=== PATIENT | male | born 1955 | race Caucasian/White ===

== ENCOUNTER 2018-05-21 11:17 | Outpatient (CLI) | payer OTHER, SELFPAY ==
[~2018-05-21 11:17] MED LIST: Sodium Chloride 0.9% 15 ML NEB ONE
--- NOTE | 2018-05-22 08:22 | HP ---
HISTORY OF PRESENT ILLNESS: Mr. Jovany Forbes is a very pleasant 62-year-old gentleman, accompanied by his son, who [facility] of a wound of the right lower leg, which developed after the patient scraped his right lower leg on a gate in July of 2017. The patient states that he has undergone percutaneous revascularization of the right lower extremity on 2 occasions in the past. The patient's medical history is also significant for left enibh-gka-uufs amputation in April of this year. The patient states that he has cleansed his wound with iodine in the past, but more recently has been cleansing the wound with saline and then dressing the wound with Telfa. The patient and his son state that the wound has been treated with various dressings including Medihoney, Silver Gel, calcium alginate, and Neosporin. PAST MEDICAL HISTORY: 1. Congestive heart failure. 2. Hypertension. 3. CVA in 2005. 4. Diabetes mellitus. 5. Chronic kidney disease. 6. DVT in 2014. PAST SURGICAL HISTORY: 1. Left tacpk-olk-bjvz amputation in April of 2018. 2. Pacemaker placement. 3. Coronary artery bypass grafting x3. 4. Percutaneous revascularization of right lower extremity x2. MEDICATIONS: The patient does not have a list of his medications with him today. ALLERGIES: BACTRIM. SOCIAL HISTORY: Significant for tobacco use of up to 1/2 pack of cigarettes per day or 3 cigars per day for 25 years in the past. The patient states that he stopped smoking in 2005. The patient also admits to the moderate consumption of alcohol in the past. He states that he stopped consuming alcohol completely in 2011. FAMILY HISTORY: Significant for both coronary artery disease and diabetes mellitus. PHYSICAL EXAMINATION: VITAL SIGNS: Temperature 98.1, pulse 70, respirations 17, and blood pressure 139/76. Accu-Chek 161. GENERAL: A 62-year-old gentleman, sitting on chair in examination room, in no acute distress. HEENT: Normocephalic, atraumatic. NECK: No nuchal rigidity. CHEST: Clear to auscultation. CARDIOVASCULAR: Regular rate and rhythm. ABDOMEN: Soft. EXTREMITIES: A wound of the right lower leg is present, which measures approximately 2.2 x 1.8 cm. Granulation tissue is visible within the wound margins. No purulent drainage is associated with the wound. No erythema of the skin surrounding the wound is present. No maceration of the skin of the periwound is noted. A dorsalis pedis pulse or posterior tibial pulse is not palpable on the right. Edema of the right foot and lower leg is present on exam today. LABORATORY DATA: Accu-Chek 161. ASSESSMENT AND PLAN: 1. Ulceration of right anterior lower leg as described above. I have explained to the patient and his son that the ulceration is likely due to both venous and arterial insufficiency. Dressing changes of Xeroform gauze will be initiated today. These dressing changes are to be performed on a daily basis after cleansing and irrigation. The patient will be performing his own dressing changes. Telfa will be utilized as a secondary dressing. Coban will be utilized as needed at the time of dressing changes. The patient states that he has a followup appointment with his glue sprayer in the near future. The patient states that he will enquire as to whether another attempt at percutaneous revascularization of the right lower extremity is warranted. I will see Mr. Forbes again after his evaluation by Cardiology. No antibiotics will be prescribed today based upon the appearance of the wound. The patient and his son understand and are in agreement with the preceding treatment plan. 2. Congestive heart failure. 3. Hypertension. 4. Cerebrovascular accident in 2005. 5. Diabetes mellitus. The patient's Accu-Chek in clinic today is 161. The patient has been told that for optimal wound healing his blood glucoses should remain below 150. 6. Chronic kidney disease. 7. Deep venous thrombosis in 2014. The patient states that he is now taking Plavix and aspirin. He was previously taking Xarelto. Job ID: [id number]
== END 2018-05-21 11:18 | disposition home or self-care (01) ==
LOC: WCC 11:17
PROVIDERS: ATTEND Family Medicine
DX: E11.622 Type 2 diabetes mellitus with other skin ulcer (principal); L97.919 Non-pressure chronic ulcer of unspecified part of right lower leg with unspecified severity; E11.22 Type 2 diabetes mellitus with diabetic chronic kidney disease; I13.0 Hypertensive heart and chronic kidney disease with heart failure and stage 1 through stage 4 chronic kidney disease, or unspecified chronic kidney disease; I50.9 Heart failure, unspecified; N18.9 Chronic kidney disease, unspecified; Z86.73 Personal history of transient ischemic attack (TIA), and cerebral infarction without residual deficits; Z86.718 Personal history of other venous thrombosis and embolism
CPT/HCPCS: 36416

== ENCOUNTER 2018-05-28 09:57 | Outpatient (CLI) | payer OTHER | END 2018-05-28 09:58 | disposition home or self-care (01) | LOC: MWLC DTY 09:57 | PROVIDERS: ATTEND Internal Medicine Geriatric Medicine | DX: E11.51 Type 2 diabetes mellitus with diabetic peripheral angiopathy without gangrene (principal) | CPT/HCPCS: 97802 ==

== ENCOUNTER 2023-04-04 11:00 | Inpatient (IN) | payer MEDICARE ==
[2023-04-04] MEDS ORDERED: Ondansetron ODT 4 MG TAB PO PRN (19:57)
[2023-04-04] MEDS ORDERED: Calcium Carbonate 500 MG ChewTAB PO PRN (19:57)
[2023-04-04 20:34] LABS: #Basophils 0.1 thou/uL (0.0-0.2); #Eosinphils 0.2 thou/uL (0.0-0.7); #Neutrophils 12.1 thou/uL (1.40-6.50); %Basophils 0.5 % (0.0-1.0); %Eosinophils 1.3 % (0.0-10.0); %Monocytes 12.3 % (0.0-10.0); %Neutrophils 75.1 % (42.0-75.0); Hematocrit 47.5 % (42.0-52.0); Hemoglobin 14.3 g/dL (14.0-18.0); Mean Corpuscular HGB CONC 30.1 g/dL (32.0-36.0); Mean Corpuscular Hemoglobin 28.9 pg (27.0-31.0); Mean Corpuscular Volume 96.2 fl (78.0-98.0); Mean Platelet Volume 11.1 fL (7.4-10.4); Platelet Count 214 10x3/uL (130-400); RBC Distribution Width 15.3 % (11.5-14.5); Red Blood Cell (RBC) Count 4.94 mill/uL (4.70-6.10); White Blood Cell (WBC) Count 16.2 10x3/uL (4.8-10.8)
[2023-04-04 20:59] LABS: Anion Gap 18 mmol/L (10-20); BUN (Urea Nitrogen) 46 mg/dL (8.4-25.7); Calc. Creatinine Clearance 0 mL/min (70-130); Calcium 8.8 mg/dL (7.8-10.44); Carbon Dioxide 14 mmol/L (23-31); Chloride 104 mmol/L (98-107); Estimated GFR 15; Glucose 128 mg/dL (80-115); Magnesium 2.6 mg/dL (1.6-2.6); Potassium 4.6 mmol/L (3.5-5.1); Sodium 131 mmol/L (136-145)
[2023-04-04 21:02] LABS: Troponin I 0.164 ng/mL (< 0.028)
[2023-04-04] MEDS ORDERED: Sodium Bicarbonate 150 MEQ in Dextrose 5% in Water 1,000 ML IV SCH (22:15)
[2023-04-04] MEDS: Sodium Bicarbonate 150 MEQ in Dextrose 5% in Water 1,000 ML IV SCH (22:45)
[2023-04-04] MEDS: Famotidine 20 MG TAB PO SCH (22:48)
[2023-04-04] MEDS: Ipratropium/Albuterol 3 ML NEB NEB SCH (23:05)
[2023-04-04] MEDS ORDERED: [UNRECOGNIZED DRUG - REMARK] IVPB PRN (23:11)
[2023-04-05] MEDS: Furosemide 20 MG (2 mL) VIAL SLOW IVP SCH (00:18)
[2023-04-05] MEDS: Albumin 25% 25 GM (100 mL) BOT IVPB SCH (00:19)
[2023-04-05 00:22] LABS: Hemoglobin A1c 10.1 % (4.0-6.0)
[2023-04-05 00:25] LABS: Vancomycin, Random 18.1 ug/mL (See Comment)
[2023-04-05 00:38] LABS: Troponin I 0.258 ng/mL (< 0.028)
[2023-04-05] MEDS ORDERED: Glucagon 1 MG/ML KIT IM PRN (00:42)
[2023-04-05] MEDS ORDERED: Dextrose 50% Abboject 50 ML SYRINGE SLOW IVP PRN (00:42)
[2023-04-05] MEDS ORDERED: Dextrose 5% in Water 1,000 ML IV PRN (00:42)
[2023-04-05] MEDS ORDERED: Vancomycin Dose by Levels Sliding Scale (Wt > 99) FS SCH (00:45)
[2023-04-05] MEDS: Vancomycin HCl 750 MG in Sodium Chloride 0.9% 250 ML 250 ML IVPB SCH (01:36)
[2023-04-05 04:37] LABS: ALT (SGPT) 12 U/L (8-55); AST (SGOT) 16 U/L (5-34); Albumin 3.9 g/dL (3.4-4.8); Alkaline Phosphatase 144 U/L (40-110); Anion Gap 21 mmol/L (10-20); BUN (Urea Nitrogen) 50 mg/dL (8.4-25.7); Bilirubin, Total 1.4 mg/dL (0.2-1.2); Calc. Creatinine Clearance 30 mL/min (70-130); Calcium 8.9 mg/dL (7.8-10.44); Carbon Dioxide 13 mmol/L (23-31); Cardiac Risk 2.5 (Less than 4.5); Chloride 102 mmol/L (98-107); Cholesterol 106 mg/dl (< 200 Desired); Estimated GFR 14; Globulin 3.8 g/dL (2.4-3.5); Glucose 158 mg/dL (80-115); HDL Cholesterol 42 mg/dL (>60 Neg Risk); LDL Cholesterol, Calculated 42 mg/dL; Potassium 4.6 mmol/L (3.5-5.1); Protein, Total 7.7 g/dL (5.8-8.1); Sodium 131 mmol/L (136-145); Triglycerides 111 mg/dL (Less than 150)
[2023-04-05 04:45] LABS: Troponin I 0.419 ng/mL (< 0.028)
[2023-04-05] MEDS: Furosemide 40 MG (4 mL) VIAL SLOW IVP SCH (05:58)
[2023-04-05 07:27] LABS: Critical Call Chem Troponin I NUR.BC6 AT 0727; Troponin I 0.481 ng/mL (< 0.028)
[2023-04-05] MEDS ORDERED: Enoxaparin 30 MG (0.3 mL) SYRINGE SC SCH (09:00)
[2023-04-05] MEDS: Aspirin Chewable 81 MG TAB PO SCH (09:17)
[2023-04-05] MEDS: cefTRIAXone\\ROCEPHIN 2 GM in Sodium Chloride 0.9% 100 ML IVPB SCH (09:17)
[2023-04-05] MEDS ORDERED: Furosemide 40 MG (4 mL) VIAL SLOW IVP SCH (12:04)
[2023-04-05] MEDS: Furosemide 100 MG (10 mL) VIAL FS SCH (13:07)
[2023-04-05] MEDS: Carvedilol 6.25 MG TAB PO SCH (18:27)
[2023-04-05] MEDS: Atorvastatin Calcium 40 MG TAB PO SCH (22:01)
[2023-04-06 04:53] LABS: #Basophils 0.1 thou/uL (0.0-0.2); #Eosinphils 0.3 thou/uL (0.0-0.7); #Monocytes 1.8 thou/uL (0.11-0.59); %Basophils 0.4 % (0.0-1.0); %Eosinophils 1.9 % (0.0-10.0); %Lymphocytes 7.3 % (21.0-51.0); %Monocytes 12.4 % (0.0-10.0); %Neutrophils 77.1 % (42.0-75.0); Hematocrit 44.2 % (42.0-52.0); Hemoglobin 13.8 g/dL (14.0-18.0); Mean Corpuscular HGB CONC 31.2 g/dL (32.0-36.0); Mean Corpuscular Hemoglobin 29.1 pg (27.0-31.0); Mean Corpuscular Volume 93.2 fl (78.0-98.0); Mean Platelet Volume 10.9 fL (7.4-10.4); Platelet Count 185 10x3/uL (130-400); RBC Distribution Width 15.1 % (11.5-14.5); Red Blood Cell (RBC) Count 4.74 mill/uL (4.70-6.10); White Blood Cell (WBC) Count 14.3 10x3/uL (4.8-10.8)
[2023-04-06 05:22] LABS: Anion Gap 17 mmol/L (10-20); BUN (Urea Nitrogen) 58 mg/dL (8.4-25.7); Calc. Creatinine Clearance 28 mL/min (70-130); Calcium 8.7 mg/dL (7.8-10.44); Carbon Dioxide 15 mmol/L (23-31); Chloride 103 mmol/L (98-107); Estimated GFR 12; Glucose 163 mg/dL (80-115); Potassium 4.4 mmol/L (3.5-5.1); Sodium 131 mmol/L (136-145)
[2023-04-06] MEDS: Furosemide 100 MG (10 mL) VIAL SLOW IVP SCH (05:48)
[2023-04-06] MEDS: HumaLOG 300 UNITS/3 ML VIAL SC PRN (06:10)
[2023-04-06] MEDS: Acetaminophen 325 MG TAB PO PRN (08:17)
[2023-04-06] MEDS ORDERED: Empagliflozin 25 MG TAB PO SCH (09:00)
[2023-04-06] MEDS ORDERED: Nystatin Powder 15 GM BOT TOP SCH (09:15)
[2023-04-06] MEDS: Clopidogrel Bisulfate 75 MG TAB PO SCH (09:16)
[2023-04-06] MEDS: Amlodipine 5 MG TAB PO SCH (09:16)
[2023-04-06] MEDS: hydrALAZINE 25 MG TAB PO SCH (09:17)
[2023-04-06] MEDS: Heparin 5,000 UNITS/ML VIAL SC SCH (09:17)
[2023-04-06] MEDS: Atorvastatin Calcium 40 MG TAB PO SCH (10:39)
[2023-04-06] MEDS: Nystatin Powder 15 GM BOT TOP SCH ×2 (10:45→21:45)
[2023-04-06] MEDS: Carvedilol 6.25 MG TAB PO SCH ×2 (10:45→17:09)
[2023-04-06 12:42] LABS: Actual Bicarbonate (HCO3a) 17.4 mEq/L (22-28); Base Excess (BEa) -11.1 mEq/L (-2.0 to +3.0); CO2 Tension 48.8 mmHg (35.0-45.0); Calcium, Ionized (arterial) 1.17 mmol/L (1.12-1.30); Hematocrit-ABG 41 % (42.0-52.0); Potassium - ABG Lab 4.11 mmol/L (3.70-5.30)
[2023-04-06 12:46] LABS: O2 Tension (PaO2), arterial 44.5 mmHg (> 80.0); pH, Arterial 7.169 (7.35-7.45)
[2023-04-06 12:47] LABS: Puncture Site RRA
[2023-04-06] MEDS: hydrALAZINE 20 MG/ML VIAL SLOW IVP SCH (19:47)
[2023-04-06] MEDS: Nitroglycerin 2% Ointment 1 INCH/1 GM Packet TOP SCH (21:28)
[2023-04-06] MEDS: hydrALAZINE 20 MG/ML VIAL ONE (21:31)
[2023-04-06] MEDS: Famotidine 20 MG TAB PO SCH (21:43)
[2023-04-07 04:17] LABS: #Basophils 0.1 thou/uL (0.0-0.2); #Eosinphils 0.3 thou/uL (0.0-0.7); #Monocytes 1.9 thou/uL (0.11-0.59); #Neutrophils 8.7 thou/uL (1.40-6.50); %Basophils 0.5 % (0.0-1.0); %Eosinophils 2.7 % (0.0-10.0); %Lymphocytes 7.7 % (21.0-51.0); %Monocytes 15.9 % (0.0-10.0); %Neutrophils 72.9 % (42.0-75.0); Hematocrit 41.4 % (42.0-52.0); Hemoglobin 13.5 g/dL (14.0-18.0); Mean Corpuscular HGB CONC 32.6 g/dL (32.0-36.0); Mean Corpuscular Hemoglobin 29.1 pg (27.0-31.0); Mean Platelet Volume 10.7 fL (7.4-10.4); Platelet Count 155 10x3/uL (130-400); RBC Distribution Width 14.8 % (11.5-14.5); Red Blood Cell (RBC) Count 4.64 mill/uL (4.70-6.10)
[2023-04-07 04:24] LABS: Mean Corpuscular Volume 89.2 fl (78.0-98.0)
[2023-04-07 04:46] LABS: Anion Gap 20 mmol/L (10-20); BUN (Urea Nitrogen) 58 mg/dL (8.4-25.7); Calc. Creatinine Clearance 34 mL/min (70-130); Calcium 8.6 mg/dL (7.8-10.44); Carbon Dioxide 15 mmol/L (23-31); Chloride 104 mmol/L (98-107); Estimated GFR 15; Glucose 144 mg/dL (80-115); Sodium 135 mmol/L (136-145)
[2023-04-07] MEDS: traMADol HCl 50 MG TAB PO PRN (22:51)
[2023-04-07] MEDS: Gabapentin 400 MG CAP PO SCH (23:31)
[2023-04-08] MEDS: Loratadine 10 MG TAB PO SCH (03:07)
[2023-04-08 03:57] LABS: Actual Bicarbonate (HCO3v) 20.3 mEq/L (22-28); Base Excess -4.7 mEq/L (-2.0 to +3.0); Calcium, Ionized (venous) 1.16 mmol/L (1.16-1.32); Chloride (VBG) 104 mmol/L (98-106); Hematocrit-VBG 39 % (42.0-52.0); Hemoglobin (Hb) 13.2 g/dL (12.6-17.4); Potassium (VBG) 3.35 mmol/L (3.70-5.30); Sodium 136 mmol/L (133-146); pH (venous) 7.353 (7.32-7.43)
[2023-04-08 04:31] LABS: #Basophils 0.1 thou/uL (0.0-0.2); #Eosinphils 0.3 thou/uL (0.0-0.7); #Monocytes 1.9 thou/uL (0.11-0.59); #Neutrophils 6.2 thou/uL (1.40-6.50); %Basophils 0.5 % (0.0-1.0); %Eosinophils 3.1 % (0.0-10.0); %Lymphocytes 13.8 % (21.0-51.0); %Monocytes 19.2 % (0.0-10.0); %Neutrophils 63.1 % (42.0-75.0); Hematocrit 36.8 % (42.0-52.0); Hemoglobin 12.1 g/dL (14.0-18.0); Mean Corpuscular HGB CONC 32.9 g/dL (32.0-36.0); Mean Corpuscular Hemoglobin 29.2 pg (27.0-31.0); Mean Corpuscular Volume 88.7 fl (78.0-98.0); Mean Platelet Volume 11.1 fL (7.4-10.4); Platelet Count 163 10x3/uL (130-400); RBC Distribution Width 14.6 % (11.5-14.5); Red Blood Cell (RBC) Count 4.15 mill/uL (4.70-6.10); White Blood Cell (WBC) Count 9.8 10x3/uL (4.8-10.8)
[2023-04-08 04:55] LABS: Anion Gap 13 mmol/L (10-20); BUN (Urea Nitrogen) 54 mg/dL (8.4-25.7); Calc. Creatinine Clearance 47 mL/min (70-130); Calcium 8.8 mg/dL (7.8-10.44); Carbon Dioxide 22 mmol/L (23-31); Chloride 105 mmol/L (98-107); Estimated GFR 24; Glucose 160 mg/dL (80-115); Potassium 3.3 mmol/L (3.5-5.1); Sodium 137 mmol/L (136-145)
[2023-04-08 07:01] LABS: Magnesium 2.2 mg/dL (1.6-2.6)
[2023-04-08] MEDS: Potassium Chloride 20 MEQ TAB PO SCH (08:57)
[2023-04-08] MEDS: Gabapentin 400 MG CAP PO SCH (08:58)
[2023-04-08] MEDS: Acetaminophen 500 MG TAB PO SCH (11:39)
[2023-04-08] MEDS: HumaLOG 300 UNITS/3 ML VIAL SC PRN (22:20)
[2023-04-09 06:09] LABS: Hematocrit 37.8 % (42.0-52.0); Hemoglobin 12.3 g/dL (14.0-18.0); Manual Diff?? YES; Mean Corpuscular HGB CONC 32.5 g/dL (32.0-36.0); Mean Corpuscular Hemoglobin 28.9 pg (27.0-31.0); Mean Corpuscular Volume 88.7 fl (78.0-98.0); Mean Platelet Volume 10.6 fL (7.4-10.4); Platelet Count 149 10x3/uL (130-400); RBC Distribution Width 14.6 % (11.5-14.5); Red Blood Cell (RBC) Count 4.26 mill/uL (4.70-6.10); White Blood Cell (WBC) Count 7.9 10x3/uL (4.8-10.8)
[2023-04-09 06:14] LABS: Delete Auto Diff?? YES
[2023-04-09 06:31] LABS: Anion Gap 12 mmol/L (10-20); BUN (Urea Nitrogen) 44 mg/dL (8.4-25.7); Calc. Creatinine Clearance 63 mL/min (70-130); Carbon Dioxide 25 mmol/L (23-31); Chloride 104 mmol/L (98-107); Estimated GFR 35; Glucose 156 mg/dL (80-115); Potassium 3.3 mmol/L (3.5-5.1); Sodium 138 mmol/L (136-145)
[2023-04-09 06:53] LABS: Anisocytosis SLIGHT = 6-15 cells HPF (0-5); CellaVision Operator ID lab.sh2; Eosinophils 4 % (0-10); Large Platelets 8.7 % (0-5); Lymphocytes 19 % (21-51); Monocytes 17 % (0-10); Neutrophil 58 % (42-75); Ovalocytes SLIGHT = 2-5 cells HPF (0-1); Platelet Adequacy Comment Platelets Normal; Polychromasia SLIGHT = 2-3 cells HPF (0-2); Smudge Cells 17.4 %; Total Cell Count 115; Vacuoles SLIGHT
[2023-04-09] MEDS: Famotidine 20 MG TAB PO SCH (21:18)
[2023-04-09] MEDS: Morphine 2 MG/ML VIAL SLOW IVP PRN (23:04)
[2023-04-10 11:26] LABS: Hematocrit 37.5 % (42.0-52.0); Manual Diff?? YES; Mean Corpuscular Hemoglobin 28.7 pg (27.0-31.0); Mean Corpuscular Volume 89.7 fl (78.0-98.0); Mean Platelet Volume 11.1 fL (7.4-10.4); Platelet Count 135 10x3/uL (130-400); RBC Distribution Width 14.6 % (11.5-14.5); Red Blood Cell (RBC) Count 4.18 mill/uL (4.70-6.10); White Blood Cell (WBC) Count 8.1 10x3/uL (4.8-10.8)
[2023-04-10 11:30] LABS: Delete Auto Diff?? YES
[2023-04-10 11:40] LABS: Anion Gap 12 mmol/L (10-20); BUN (Urea Nitrogen) 34 mg/dL (8.4-25.7); Calc. Creatinine Clearance 88 mL/min (70-130); Calcium 8.9 mg/dL (7.8-10.44); Carbon Dioxide 28 mmol/L (23-31); Chloride 102 mmol/L (98-107); Estimated GFR 56; Glucose 200 mg/dL (80-115); Potassium 3.1 mmol/L (3.5-5.1); Sodium 139 mmol/L (136-145)
[2023-04-10 11:43] LABS: ALT (SGPT) 15 U/L (8-55); AST (SGOT) 21 U/L (5-34); Albumin 3.1 g/dL (3.4-4.8); Alkaline Phosphatase 179 U/L (40-110); Anion Gap 12 mmol/L (10-20); BUN (Urea Nitrogen) 33 mg/dL (8.4-25.7); Bilirubin, Total 0.6 mg/dL (0.2-1.2); Calc. Creatinine Clearance 89 mL/min (70-130); Calcium 8.9 mg/dL (7.8-10.44); Carbon Dioxide 28 mmol/L (23-31); Chloride 102 mmol/L (98-107); Estimated GFR 57; Globulin 3.3 g/dL (2.4-3.5); Glucose 200 mg/dL (80-115); Potassium 3.1 mmol/L (3.5-5.1); Protein, Total 6.4 g/dL (5.8-8.1); Sodium 139 mmol/L (136-145)
[2023-04-10 11:56] LABS: Band 3 % (5-11); CellaVision Operator ID LAB.KW3; Eosinophils 1 % (0-10); Lymphocytes 10 % (21-51); Monocytes 12 % (0-10); Neutrophil 73 % (42-75); Platelet Adequacy Comment Platelets Normal; RBC Morphology Within Normal Limits; Total Cell Count 101
[2023-04-10] MEDS: Amlodipine 5 MG TAB PO SCH (13:42)
[2023-04-10 15:18] LABS: Magnesium 1.6 mg/dL (1.6-2.6)
[2023-04-10] MEDS: Famotidine 20 MG TAB PO SCH (21:02)
[2023-04-11 08:03] LABS: Hematocrit 40.1 % (42.0-52.0); Hemoglobin 12.7 g/dL (14.0-18.0); Manual Diff?? YES; Mean Corpuscular HGB CONC 31.7 g/dL (32.0-36.0); Mean Corpuscular Hemoglobin 28.5 pg (27.0-31.0); Mean Corpuscular Volume 89.9 fl (78.0-98.0); Platelet Count 147 10x3/uL (130-400); RBC Distribution Width 14.5 % (11.5-14.5); Red Blood Cell (RBC) Count 4.46 mill/uL (4.70-6.10); White Blood Cell (WBC) Count 8.2 10x3/uL (4.8-10.8)
[2023-04-11 08:06] LABS: Delete Auto Diff?? YES
[2023-04-11 08:26] LABS: Anion Gap 15 mmol/L (10-20); BUN (Urea Nitrogen) 31 mg/dL (8.4-25.7); Calc. Creatinine Clearance 84 mL/min (70-130); Calcium 9.2 mg/dL (7.8-10.44); Carbon Dioxide 27 mmol/L (23-31); Chloride 100 mmol/L (98-107); Estimated GFR 52; Glucose 180 mg/dL (80-115); Potassium 3.1 mmol/L (3.5-5.1); Sodium 139 mmol/L (136-145)
[2023-04-11 08:41] LABS: Anisocytosis SLIGHT = 6-15 cells HPF (0-5); Band 6 % (5-11); CellaVision Operator ID LAB.KW3; Eosinophils 2 % (0-10); Large Platelets 14.1 % (0-5); Lymphocytes 12 % (21-51); Monocytes 21 % (0-10); Neutrophil 54 % (42-75); Platelet Adequacy Comment Platelets Normal; Polychromasia SLIGHT = 2-3 cells HPF (0-2); Reactive Lymphocytes 3 % (0-10); Total Cell Count 99
[2023-04-11] MEDS ORDERED: Amlodipine 10 MG TAB PO SCH (09:00)
[2023-04-11] MEDS: Carvedilol 6.25 MG TAB PO SCH (10:29)
[2023-04-11] MEDS ORDERED: Electrolyte Replacement Protocol 1 EACH FS SCH (13:30)
[2023-04-11] MEDS: Potassium Chloride 20 MEQ TAB PO SCH (15:57)
[2023-04-11] MEDS: Furosemide 80 MG TAB PO SCH (16:00)
[2023-04-11] MEDS: Magnesium 2 GM/50 ML(in water) 2 GM in Premix 1 BAG IVPB SCH (16:01)
[2023-04-11] MEDS: Loratadine 10 MG TAB PO SCH (22:37)
[2023-04-11] MEDS: Cetirizine HCl 5 MG/5 ML UDCUP PO SCH (23:46)
[2023-04-12 06:33] LABS: Hematocrit 36.3 % (42.0-52.0); Hemoglobin 11.5 g/dL (14.0-18.0); Manual Diff?? YES; Mean Corpuscular HGB CONC 31.7 g/dL (32.0-36.0); Mean Corpuscular Hemoglobin 28.7 pg (27.0-31.0); Mean Corpuscular Volume 90.5 fl (78.0-98.0); Mean Platelet Volume 11.2 fL (7.4-10.4); Platelet Count 139 10x3/uL (130-400); RBC Distribution Width 14.5 % (11.5-14.5); Red Blood Cell (RBC) Count 4.01 mill/uL (4.70-6.10)
[2023-04-12 06:40] LABS: Delete Auto Diff?? YES
[2023-04-12 06:55] LABS: Anion Gap 13 mmol/L (10-20); BUN (Urea Nitrogen) 34 mg/dL (8.4-25.7); Calc. Creatinine Clearance 79 mL/min (70-130); Calcium 8.7 mg/dL (7.8-10.44); Carbon Dioxide 30 mmol/L (23-31); Chloride 97 mmol/L (98-107); Estimated GFR 49; Glucose 249 mg/dL (80-115); Potassium 3.1 mmol/L (3.5-5.1); Sodium 137 mmol/L (136-145)
[2023-04-12 07:17] LABS: Anisocytosis SLIGHT = 6-15 cells HPF (0-5); Band 6 % (5-11); CellaVision Operator ID LAB.KW3; Eosinophils 2 % (0-10); Hypochromia SLIGHT = 6-15 cells HPF (0-5); Large Platelets 10.8 % (0-5); Lymphocytes 12 % (21-51); Monocytes 15 % (0-10); Neutrophil 66 % (42-75); Nucleated RBC (Manual Ct) 1 % (0); Platelet Adequacy Comment Platelets Normal; Polychromasia SLIGHT = 2-3 cells HPF (0-2); Total Cell Count 102
[2023-04-12] MEDS ORDERED: Cetirizine HCl 5 MG/5 ML UDCUP PO SCH (09:00)
[2023-04-12] MEDS: Potassium Chloride 20 MEQ TAB PO SCH (10:20)
[2023-04-12] MEDS: hydrALAZINE 25 MG TAB PO SCH (10:21)
[2023-04-12] MEDS: Isosorbide Dinitrate 20 MG TAB PO SCH (10:23)
[2023-04-12] MEDS: Furosemide 40 MG TAB PO SCH (15:54)
[2023-04-12] MEDS: Carvedilol 25 MG TAB PO SCH (15:55)
[2023-04-12] MEDS: Heparin 5,000 UNITS/ML VIAL SC SCH (20:20)
[2023-04-12] MEDS: Loratadine 10 MG TAB PO SCH (20:20)
[2023-04-13 05:35] LABS: #Basophils 0.1 thou/uL (0.0-0.2); #Eosinphils 0.3 thou/uL (0.0-0.7); #Monocytes 1.7 thou/uL (0.11-0.59); #Neutrophils 5.5 thou/uL (1.40-6.50); %Basophils 0.5 % (0.0-1.0); %Eosinophils 3.3 % (0.0-10.0); %Lymphocytes 17.8 % (21.0-51.0); %Monocytes 18.1 % (0.0-10.0); %Neutrophils 59.9 % (42.0-75.0); Hematocrit 33.9 % (42.0-52.0); Hemoglobin 10.7 g/dL (14.0-18.0); Mean Corpuscular HGB CONC 31.6 g/dL (32.0-36.0); Mean Corpuscular Hemoglobin 28.4 pg (27.0-31.0); Mean Corpuscular Volume 89.9 fl (78.0-98.0); Mean Platelet Volume 11.6 fL (7.4-10.4); Platelet Count 152 10x3/uL (130-400); RBC Distribution Width 14.5 % (11.5-14.5); Red Blood Cell (RBC) Count 3.77 mill/uL (4.70-6.10); White Blood Cell (WBC) Count 9.3 10x3/uL (4.8-10.8)
[2023-04-13 05:56] LABS: Anion Gap 12 mmol/L (10-20); BUN (Urea Nitrogen) 29 mg/dL (8.4-25.7); Calc. Creatinine Clearance 91 mL/min (70-130); Calcium 8.6 mg/dL (7.8-10.44); Carbon Dioxide 33 mmol/L (23-31); Chloride 97 mmol/L (98-107); Estimated GFR 57; Glucose 224 mg/dL (80-115); Potassium 3.2 mmol/L (3.5-5.1); Sodium 139 mmol/L (136-145)
[2023-04-13] MEDS: Potassium Chloride 20 MEQ TAB PO SCH (10:18)
[2023-04-14 06:56] LABS: Anion Gap 14 mmol/L (10-20); BUN (Urea Nitrogen) 25 mg/dL (8.4-25.7); Calc. Creatinine Clearance 102 mL/min (70-130); Calcium 8.8 mg/dL (7.8-10.44); Carbon Dioxide 28 mmol/L (23-31); Chloride 98 mmol/L (98-107); Estimated GFR 67; Glucose 221 mg/dL (80-115); Potassium 3.7 mmol/L (3.5-5.1); Sodium 136 mmol/L (136-145)
[2023-04-14 07:48] LABS: #Basophils 0.1 thou/uL (0.0-0.2); #Eosinphils 0.2 thou/uL (0.0-0.7); #Monocytes 1.4 thou/uL (0.11-0.59); #Neutrophils 4.7 thou/uL (1.40-6.50); %Basophils 0.6 % (0.0-1.0); %Eosinophils 2.7 % (0.0-10.0); %Lymphocytes 21.4 % (21.0-51.0); %Monocytes 17.1 % (0.0-10.0); %Neutrophils 57.8 % (42.0-75.0); Hematocrit 33.7 % (42.0-52.0); Hemoglobin 10.6 g/dL (14.0-18.0); Mean Corpuscular HGB CONC 31.5 g/dL (32.0-36.0); Mean Corpuscular Hemoglobin 28.8 pg (27.0-31.0); Mean Corpuscular Volume 91.6 fl (78.0-98.0); Mean Platelet Volume 11.8 fL (7.4-10.4); Platelet Count 158 10x3/uL (130-400); RBC Distribution Width 14.5 % (11.5-14.5); Red Blood Cell (RBC) Count 3.68 mill/uL (4.70-6.10); White Blood Cell (WBC) Count 8.2 10x3/uL (4.8-10.8)
[2023-04-14] MEDS ORDERED: Guaifenesin DM 100-10/5 ML UDCUP PO PRN (12:24)
[2023-04-14] MEDS ORDERED: Mag-Al 1200 mg/1200 mg/30 ML UDCUP PO PRN (12:24)
[2023-04-15 05:12] LABS: #Eosinphils 0.3 thou/uL (0.0-0.7); #Monocytes 1.3 thou/uL (0.11-0.59); #Neutrophils 4.4 thou/uL (1.40-6.50); %Basophils 0.5 % (0.0-1.0); %Eosinophils 3.7 % (0.0-10.0); %Lymphocytes 23.8 % (21.0-51.0); %Monocytes 16.3 % (0.0-10.0); %Neutrophils 55.2 % (42.0-75.0); Hemoglobin 10.9 g/dL (14.0-18.0); Mean Corpuscular HGB CONC 31.1 g/dL (32.0-36.0); Mean Corpuscular Volume 93.1 fl (78.0-98.0); Mean Platelet Volume 11.7 fL (7.4-10.4); Platelet Count 178 10x3/uL (130-400); RBC Distribution Width 14.5 % (11.5-14.5); Red Blood Cell (RBC) Count 3.76 mill/uL (4.70-6.10); White Blood Cell (WBC) Count 7.9 10x3/uL (4.8-10.8)
[2023-04-15 05:30] LABS: Anion Gap 14 mmol/L (10-20); BUN (Urea Nitrogen) 24 mg/dL (8.4-25.7); Calc. Creatinine Clearance 89 mL/min (70-130); Calcium 9.1 mg/dL (7.8-10.44); Carbon Dioxide 29 mmol/L (23-31); Chloride 97 mmol/L (98-107); Estimated GFR 57; Glucose 263 mg/dL (80-115); Potassium 3.5 mmol/L (3.5-5.1); Sodium 136 mmol/L (136-145)
[2023-04-15] MEDS: hydrALAZINE 25 MG TAB PO SCH (08:58)
[2023-04-15] MEDS: Potassium Chloride 20 MEQ TAB PO SCH (08:58)
[2023-04-15] MEDS: Artificial Tear Sol 15 ML BOT EA EYE PRN (22:55)
[2023-04-16] MEDS: hydrALAZINE 25 MG TAB PO SCH (09:30)
[2023-04-17 06:56] LABS: Anion Gap 10 mmol/L (10-20); BUN (Urea Nitrogen) 23 mg/dL (8.4-25.7); Calc. Creatinine Clearance 88 mL/min (70-130); Calcium 9.1 mg/dL (7.8-10.44); Carbon Dioxide 32 mmol/L (23-31); Chloride 97 mmol/L (98-107); Estimated GFR 56; Glucose 297 mg/dL (80-115); Potassium 3.4 mmol/L (3.5-5.1); Sodium 136 mmol/L (136-145)
[2023-04-17] MEDS: Carvedilol 6.25 MG TAB PO SCH (09:52)
[2023-04-17] MEDS: Potassium Chloride 20 MEQ TAB PO SCH (09:52)
[2023-04-17 14:13] VITALS: BMI 36.8
[2023-04-17 15:43] VITALS: TEMP 97.6
[2023-04-17] MEDS: Carvedilol 25 MG TAB PO SCH (16:17)
[2023-04-17 16:18] VITALS: BP 165/73
== END 2023-04-17 17:50 | DRG 280 ==
LOC: 2NO 19:15 → IMCU/EMU 04-06 14:22
PROVIDERS: ADMIT Internal Medicine; ATTEND Hospitalist
PROC: 30233J1 Transfusion of Nonautologous Serum Albumin into Peripheral Vein, Percutaneous Approach (ICD-10-PCS; 2023-04-05)
PROC: 4A033R1 Measurement of Arterial Saturation, Peripheral, Percutaneous Approach (ICD-10-PCS; principal; 2023-04-06)
PROC: 5A09357 Assistance with Respiratory Ventilation, Less than 24 Consecutive Hours, Continuous Positive Airway Pressure (ICD-10-PCS; 2023-04-06)
DX: I50.23 Acute on chronic systolic (congestive) heart failure (principal); I21.A1 Myocardial infarction type 2; G93.41 Metabolic encephalopathy; J96.01 Acute respiratory failure with hypoxia; J96.02 Acute respiratory failure with hypercapnia; E87.4 Mixed disorder of acid-base balance; N17.9 Acute kidney failure, unspecified; T87.43 Infection of amputation stump, right lower extremity; T87.44 Infection of amputation stump, left lower extremity; M86.9 Osteomyelitis, unspecified; Z88.2 Allergy status to sulfonamides; Z88.1 Allergy status to other antibiotic agents; Z79.899 Other long term (current) drug therapy; Z79.82 Long term (current) use of aspirin; E78.00 Pure hypercholesterolemia, unspecified; L30.4 Erythema intertrigo; N18.9 Chronic kidney disease, unspecified; E66.01 Morbid (severe) obesity due to excess calories; Z68.36 Body mass index [BMI] 36.0-36.9, adult; Z79.4 Long term (current) use of insulin; E87.6 Hypokalemia; Z79.01 Long term (current) use of anticoagulants; I25.5 Ischemic cardiomyopathy; E11.69 Type 2 diabetes mellitus with other specified complication; E11.22 Type 2 diabetes mellitus with diabetic chronic kidney disease
CPT/HCPCS: 36415; 36416; 36600; 71045; 76770; 80048; 80053; 80061; 80202; 82040; 82274; 82805; 83036; 83735; 83880; 84484; 85025; 87040; 93005; 93010; 93306; 94640; 94660; 94760; 97139; J0360; J0696; J1644; J1815; J1940; J2272; J3370; J3475; J3490; J7050; J7070; J7620; P9047

== ENCOUNTER 2023-07-19 03:36 | Inpatient (IN) | payer MEDICARE, OTHER ==
[2023-07-19] MEDS ORDERED: Ondansetron PF 4 MG/2 ML Vial IVP PRN (03:53)
[2023-07-19] MEDS ORDERED: Ondansetron ODT 4 MG TAB PO PRN (03:53)
[2023-07-19 04:22] VITALS: BMI 44.9
[2023-07-19] MEDS ORDERED: Dextrose 5% in Water 1,000 ML IV PRN (04:49)
[2023-07-19] MEDS ORDERED: Dextrose 50% Abboject 50 ML SYRINGE SLOW IVP PRN (04:49)
[2023-07-19] MEDS ORDERED: Glucagon 1 MG/ML KIT IM PRN (04:49)
[2023-07-19 05:09] LABS: #Basophils 0.04 10x3/uL (0.0-0.2); %Basophils 0.6 % (0.0-1.0); %Eosinophils 2.2 % (0.0-10.0); %Lymphocytes 20.5 % (21.0-51.0); %Monocytes 15.5 % (0.0-10.0); %Neutrophils 61.1 % (42.0-75.0); Hemoglobin 12.8 g/dL (14.0-18.0); Mean Corpuscular HGB CONC 30.5 g/dL (32.0-36.0); Mean Corpuscular Hemoglobin 29.4 pg (27.0-31.0); Mean Corpuscular Volume 96.3 fL (78.0-98.0); Mean Platelet Volume 11.9 fL (7.4-10.4); Platelet Count 156 10x3/uL (130-400); RBC Distribution Width 15.3 % (11.5-14.5); Red Blood Cell (RBC) Count 4.36 mill/uL (4.70-6.10)
[2023-07-19 05:30] LABS: ALT (SGPT) 10 U/L (8-55); AST (SGOT) 16 U/L (5-34); Albumin 3.4 g/dL (3.4-4.8); Alkaline Phosphatase 171 U/L (40-110); Anion Gap 11 mmol/L (10-20); BUN (Urea Nitrogen) 16 mg/dL (8.4-25.7); Bilirubin, Total 2.1 mg/dL (0.2-1.2); Calc. Creatinine Clearance 112 mL/min (70-130); Calcium 9.1 mg/dL (7.8-10.44); Carbon Dioxide 32 mmol/L (23-31); Chloride 101 mmol/L (98-107); Estimated GFR 68; Globulin 3.9 g/dL (2.4-3.5); Glucose 126 mg/dL (80-115); Potassium 4.2 mmol/L (3.5-5.1); Protein, Total 7.3 g/dL (5.8-8.1); Sodium 140 mmol/L (136-145)
[2023-07-19] MEDS ORDERED: Famotidine/PF 20 mg/2ml Vial SLOW IVP SCH (09:00)
[2023-07-19] MEDS: Atorvastatin Calcium 40 MG TAB PO SCH (09:18)
[2023-07-19] MEDS: Carvedilol 25 MG TAB PO SCH (09:18)
[2023-07-19] MEDS: Empagliflozin 25 MG TAB PO SCH (09:19)
[2023-07-19] MEDS: Famotidine 20 MG TAB PO SCH (09:19)
[2023-07-19] MEDS: Cholecalciferol 1,000 UNITS (25 MCG) TAB PO SCH (09:19)
[2023-07-19] MEDS: Clopidogrel Bisulfate 75 MG TAB PO SCH (09:19)
[2023-07-19] MEDS: Ferrous Sulfate 325 MG TAB PO SCH (09:19)
[2023-07-19] MEDS: Insulin Glargine 30 UNITS/0.3 ML VIAL SC SCH (09:20)
[2023-07-19] MEDS: Gabapentin 300 MG CAP PO SCH (09:20)
[2023-07-19] MEDS: Losartan 25 MG TAB PO SCH (09:21)
[2023-07-19] MEDS: Furosemide 40 MG (4 mL) VIAL SLOW IVP SCH ×2 (09:23→14:34)
[2023-07-19] MEDS: Acetaminophen 325 MG TAB PO PRN (09:28)
[2023-07-19] MEDS: HumaLOG 300 UNITS/3 ML VIAL SC PRN (12:07)
[2023-07-19] MEDS: traMADol HCl 50 MG TAB PO PRN (14:34)
[2023-07-19] MEDS: Fluticasone Propionate Nasal Spray 16 gm Bottle NASAL PRN (23:02)
[2023-07-19] MEDS: Loratadine 10 MG TAB PO PRN (23:02)
[2023-07-20 04:10] LABS: Anion Gap 12 mmol/L (10-20); BUN (Urea Nitrogen) 18 mg/dL (8.4-25.7); Calc. Creatinine Clearance 86 mL/min (70-130); Calcium 9.1 mg/dL (7.8-10.44); Carbon Dioxide 27 mmol/L (23-31); Chloride 103 mmol/L (98-107); Estimated GFR 49; Glucose 76 mg/dL (80-115); Potassium 4.1 mmol/L (3.5-5.1); Sodium 138 mmol/L (136-145)
[2023-07-20] MEDS: Ketorolac Tromethamine 30 MG (1 mL) VIAL IVP SCH (04:23)
[2023-07-20] MEDS: Docusate 100 MG CAP PO SCH (13:47)
[2023-07-20] MEDS: Polyethylene Glycol 3350 17 GM Packet PO SCH (13:47)
[2023-07-21 00:43] LABS: Actual Bicarbonate (HCO3v) 28.3 mEq/L (22-28); Base Excess -0.7 mEq/L (-2.0 to +3.0); Chloride (VBG) 100 mmol/L (98-106); Hematocrit-VBG 38 % (42.0-52.0); Hemoglobin (Hb) 12.8 g/dL (12.6-17.4); Sodium 137 mmol/L (133-146); pH (venous) 7.232 (7.32-7.43)
[2023-07-21 06:35] LABS: Hematocrit 41.4 % (42.0-52.0); Hemoglobin 12.3 g/dL (14.0-18.0); Mean Corpuscular HGB CONC 29.7 g/dL (32.0-36.0); Mean Corpuscular Hemoglobin 28.5 pg (27.0-31.0); Mean Corpuscular Volume 96.1 fL (78.0-98.0); Mean Platelet Volume 11.7 fL (7.4-10.4); Platelet Count 137 10x3/uL (130-400); RBC Distribution Width 15.3 % (11.5-14.5); Red Blood Cell (RBC) Count 4.31 mill/uL (4.70-6.10)
[2023-07-21 07:46] LABS: Chloride 102 mmol/L (98-107); Potassium 4.3 mmol/L (3.5-5.1); Sodium 141 mmol/L (136-145)
[2023-07-21 07:47] LABS: Calcium 9.1 mg/dL (7.8-10.44); Glucose 130 mg/dL (80-115)
[2023-07-21 07:49] LABS: Anion Gap 16 mmol/L (10-20); BUN (Urea Nitrogen) 25 mg/dL (8.4-25.7); Calc. Creatinine Clearance 47 mL/min (70-130); Carbon Dioxide 27 mmol/L (23-31); Estimated GFR 26
[2023-07-21] MEDS: Albumin 25% 25 GM (100 mL) BOT IVPB SCH (09:35)
[2023-07-21] MEDS: Docusate 100 MG CAP PO SCH (11:12)
[2023-07-21] MEDS: Polyethylene Glycol 3350 17 GM Packet PO SCH (11:12)
[2023-07-22 06:45] LABS: Anion Gap 16 mmol/L (10-20); BUN (Urea Nitrogen) 34 mg/dL (8.4-25.7); Calc. Creatinine Clearance 33 mL/min (70-130); Calcium 9.3 mg/dL (7.8-10.44); Carbon Dioxide 28 mmol/L (23-31); Chloride 100 mmol/L (98-107); Estimated GFR 16; Glucose 161 mg/dL (80-115); Potassium 4.9 mmol/L (3.5-5.1); Sodium 139 mmol/L (136-145)
[2023-07-22] MEDS: Furosemide 40 MG (4 mL) VIAL SLOW IVP SCH (08:39)
[2023-07-22] MEDS ORDERED: Heparin 5,000 UNITS/ML VIAL SC SCH (21:00)
[2023-07-22] MEDS: Atorvastatin Calcium 40 MG TAB PO SCH (21:39)
[2023-07-22] MEDS: HumaLOG 300 UNITS/3 ML VIAL SC PRN (22:04)
[2023-07-23 05:49] LABS: Actual Bicarbonate (HCO3v) 23.3 mEq/L (22-28); Base Excess -3.5 mEq/L (-2.0 to +3.0); Calcium, Ionized (venous) 1.09 mmol/L (1.16-1.32); Chloride (VBG) 98 mmol/L (98-106); Hematocrit-VBG 38 % (42.0-52.0); Hemoglobin (Hb) 12.9 g/dL (12.6-17.4); Potassium (VBG) 4.67 mmol/L (3.70-5.30); Sodium 133 mmol/L (133-146); pH (venous) 7.297 (7.32-7.43)
[2023-07-23 06:00] LABS: Hemoglobin 11.7 g/dL (14.0-18.0); Mean Corpuscular HGB CONC 30.8 g/dL (32.0-36.0); Mean Corpuscular Hemoglobin 28.9 pg (27.0-31.0); Mean Corpuscular Volume 93.8 fL (78.0-98.0); Platelet Count 131 10x3/uL (130-400); RBC Distribution Width 15.3 % (11.5-14.5); Red Blood Cell (RBC) Count 4.05 mill/uL (4.70-6.10)
[2023-07-23 07:10] LABS: Anion Gap 14 mmol/L (10-20); BUN (Urea Nitrogen) 42 mg/dL (8.4-25.7); Calc. Creatinine Clearance 26 mL/min (70-130); Calcium 8.6 mg/dL (7.8-10.44); Carbon Dioxide 27 mmol/L (23-31); Chloride 100 mmol/L (98-107); Estimated GFR 12; Glucose 158 mg/dL (80-115); Potassium 4.8 mmol/L (3.5-5.1); Sodium 136 mmol/L (136-145)
[2023-07-24 07:08] LABS: Anion Gap 16 mmol/L (10-20); BUN (Urea Nitrogen) 50 mg/dL (8.4-25.7); Calc. Creatinine Clearance 24 mL/min (70-130); Calcium 8.5 mg/dL (7.8-10.44); Carbon Dioxide 26 mmol/L (23-31); Chloride 98 mmol/L (98-107); Estimated GFR 11; Glucose 156 mg/dL (80-115); Magnesium 2.3 mg/dL (1.6-2.6); Phosphorus 7.3 mg/dL (2.3-4.7); Potassium 4.9 mmol/L (3.5-5.1); Sodium 135 mmol/L (136-145)
[2023-07-24] MEDS: Famotidine 20 MG TAB PO SCH (20:26)
[2023-07-25 09:42] LABS: Anion Gap 15 mmol/L (10-20); BUN (Urea Nitrogen) 58 mg/dL (8.4-25.7); Calc. Creatinine Clearance 23 mL/min (70-130); Calcium 8.6 mg/dL (7.8-10.44); Carbon Dioxide 26 mmol/L (23-31); Chloride 96 mmol/L (98-107); Estimated GFR 11; Glucose 132 mg/dL (80-115); Potassium 5.2 mmol/L (3.5-5.1); Sodium 132 mmol/L (136-145)
[2023-07-25] MEDS: Sodium Polystyrene Sulfonate 15 GM (60 mL) BOT PO SCH (12:34)
[2023-07-25] MEDS: Fluticasone Propionate Nasal Spray 16 gm Bottle NASAL SCH (20:04)
[2023-07-26 04:16] LABS: #Basophils 0.05 10x3/uL (0.0-0.2); %Basophils 0.6 % (0.0-1.0); %Eosinophils 2.8 % (0.0-10.0); %Lymphocytes 12.6 % (21.0-51.0); %Monocytes 19.3 % (0.0-10.0); %Neutrophils 64.5 % (42.0-75.0); Hematocrit 39.3 % (42.0-52.0); Hemoglobin 12.3 g/dL (14.0-18.0); Mean Corpuscular HGB CONC 31.3 g/dL (32.0-36.0); Mean Corpuscular Hemoglobin 29.1 pg (27.0-31.0); Mean Corpuscular Volume 93.1 fL (78.0-98.0); Mean Platelet Volume 12.6 fL (7.4-10.4); Platelet Count 145 10x3/uL (130-400); RBC Distribution Width 15.1 % (11.5-14.5); Red Blood Cell (RBC) Count 4.22 mill/uL (4.70-6.10)
[2023-07-26 04:36] LABS: Anion Gap 18 mmol/L (10-20); BUN (Urea Nitrogen) 62 mg/dL (8.4-25.7); Calc. Creatinine Clearance 24 mL/min (70-130); Calcium 8.8 mg/dL (7.8-10.44); Carbon Dioxide 20 mmol/L (23-31); Chloride 97 mmol/L (98-107); Estimated GFR 11; Glucose 128 mg/dL (80-115); Sodium 130 mmol/L (136-145)
[2023-07-26 14:09] VITALS: BMI 44.0
[2023-07-27 04:19] LABS: Hematocrit 38.9 % (42.0-52.0); Hemoglobin 12.2 g/dL (14.0-18.0); Mean Corpuscular HGB CONC 31.4 g/dL (32.0-36.0); Mean Corpuscular Hemoglobin 28.6 pg (27.0-31.0); Mean Corpuscular Volume 91.3 fL (78.0-98.0); Mean Platelet Volume 12.1 fL (7.4-10.4); Platelet Count 143 10x3/uL (130-400); RBC Distribution Width 15.1 % (11.5-14.5); Red Blood Cell (RBC) Count 4.26 mill/uL (4.70-6.10)
[2023-07-27 04:38] LABS: Anion Gap 15 mmol/L (10-20); BUN (Urea Nitrogen) 67 mg/dL (8.4-25.7); Calc. Creatinine Clearance 27 mL/min (70-130); Calcium 8.6 mg/dL (7.8-10.44); Carbon Dioxide 25 mmol/L (23-31); Chloride 96 mmol/L (98-107); Estimated GFR 13; Glucose 167 mg/dL (80-115); Potassium 4.4 mmol/L (3.5-5.1); Sodium 132 mmol/L (136-145)
[2023-07-27 04:48] LABS: Band 5 % (5-11); Eosinophils 5 % (0-10); Large Platelets 5.8 % (0-5); Lymphocytes 14 % (21-51); Monocytes 19 % (0-10); Neutrophil 55 % (42-75); Platelet Adequacy Comment Platelets Normal; Poikilocytosis SLIGHT = 6-15 cells HPF (0-5); Polychromasia SLIGHT = 2-3 cells HPF (0-2)
[2023-07-28 07:13] LABS: #Basophils 0.04 10x3/uL (0.0-0.2); %Basophils 0.5 % (0.0-1.0); %Lymphocytes 11.5 % (21.0-51.0); %Monocytes 18.6 % (0.0-10.0); %Neutrophils 66.3 % (42.0-75.0); Hematocrit 40.8 % (42.0-52.0); Hemoglobin 12.6 g/dL (14.0-18.0); Mean Corpuscular HGB CONC 30.9 g/dL (32.0-36.0); Mean Corpuscular Hemoglobin 28.8 pg (27.0-31.0); Mean Corpuscular Volume 93.4 fL (78.0-98.0); Mean Platelet Volume 11.9 fL (7.4-10.4); Platelet Count 152 10x3/uL (130-400); RBC Distribution Width 14.9 % (11.5-14.5); Red Blood Cell (RBC) Count 4.37 mill/uL (4.70-6.10)
[2023-07-28 07:41] LABS: Anion Gap 17 mmol/L (10-20); BUN (Urea Nitrogen) 64 mg/dL (8.4-25.7); Calc. Creatinine Clearance 36 mL/min (70-130); Calcium 8.9 mg/dL (7.8-10.44); Carbon Dioxide 25 mmol/L (23-31); Chloride 97 mmol/L (98-107); Estimated GFR 18; Glucose 162 mg/dL (80-115); Potassium 4.5 mmol/L (3.5-5.1); Sodium 134 mmol/L (136-145)
[2023-07-29 04:20] LABS: Hematocrit 38.5 % (42.0-52.0); Hemoglobin 12.2 g/dL (14.0-18.0); Mean Corpuscular HGB CONC 31.7 g/dL (32.0-36.0); Mean Corpuscular Hemoglobin 29.3 pg (27.0-31.0); Mean Corpuscular Volume 92.3 fL (78.0-98.0); Platelet Count 145 10x3/uL (130-400); RBC Distribution Width 14.9 % (11.5-14.5); Red Blood Cell (RBC) Count 4.17 mill/uL (4.70-6.10)
[2023-07-29 04:33] LABS: Anion Gap 15 mmol/L (10-20); BUN (Urea Nitrogen) 59 mg/dL (8.4-25.7); Calc. Creatinine Clearance 44 mL/min (70-130); Calcium 8.8 mg/dL (7.8-10.44); Carbon Dioxide 29 mmol/L (23-31); Chloride 99 mmol/L (98-107); Estimated GFR 22; Glucose 143 mg/dL (80-115); Potassium 4.2 mmol/L (3.5-5.1); Sodium 139 mmol/L (136-145)
[2023-07-29 04:39] LABS: Anisocytosis SLIGHT = 6-15 cells HPF (0-5); Band 5 % (5-11); Eosinophils 6 % (0-10); Lymphocytes 17 % (21-51); Monocytes 20 % (0-10); Neutrophil 50 % (42-75); Platelet Adequacy Comment Platelets Normal; Polychromasia SLIGHT = 2-3 cells HPF (0-2); Reactive Lymphocytes 1 % (0-10)
[2023-07-29] MEDS: NIFEdipine XL 60 MG ER.TAB PO SCH (17:13)
[2023-07-30 04:29] LABS: #Basophils 0.06 10x3/uL (0.0-0.2); %Basophils 0.5 % (0.0-1.0); %Eosinophils 2.6 % (0.0-10.0); %Lymphocytes 9.8 % (21.0-51.0); %Monocytes 17.5 % (0.0-10.0); %Neutrophils 69.3 % (42.0-75.0); Hematocrit 39.7 % (42.0-52.0); Hemoglobin 12.5 g/dL (14.0-18.0); Mean Corpuscular HGB CONC 31.5 g/dL (32.0-36.0); Mean Corpuscular Hemoglobin 28.8 pg (27.0-31.0); Mean Corpuscular Volume 91.5 fL (78.0-98.0); Mean Platelet Volume 12.5 fL (7.4-10.4); Platelet Count 193 10x3/uL (130-400); RBC Distribution Width 14.9 % (11.5-14.5); Red Blood Cell (RBC) Count 4.34 mill/uL (4.70-6.10)
[2023-07-30 04:47] LABS: Anion Gap 16 mmol/L (10-20); BUN (Urea Nitrogen) 59 mg/dL (8.4-25.7); Calc. Creatinine Clearance 52 mL/min (70-130); Calcium 8.9 mg/dL (7.8-10.44); Carbon Dioxide 26 mmol/L (23-31); Chloride 100 mmol/L (98-107); Estimated GFR 28; Glucose 196 mg/dL (80-115); Potassium 4.5 mmol/L (3.5-5.1); Sodium 137 mmol/L (136-145)
[2023-07-30] MEDS: NIFEdipine XL 60 MG ER.TAB PO SCH (09:01)
[2023-07-30] MEDS: Enoxaparin 40 MG (0.4 mL) SYRINGE SC SCH (17:16)
[2023-07-31 04:30] LABS: #Basophils 0.08 10x3/uL (0.0-0.2); %Basophils 0.7 % (0.0-1.0); %Eosinophils 2.9 % (0.0-10.0); %Lymphocytes 12.5 % (21.0-51.0); %Monocytes 16.8 % (0.0-10.0); %Neutrophils 66.8 % (42.0-75.0); Hematocrit 40.3 % (42.0-52.0); Hemoglobin 12.8 g/dL (14.0-18.0); Mean Corpuscular HGB CONC 31.8 g/dL (32.0-36.0); Mean Corpuscular Hemoglobin 28.8 pg (27.0-31.0); Mean Corpuscular Volume 90.6 fL (78.0-98.0); Platelet Count 220 10x3/uL (130-400); Red Blood Cell (RBC) Count 4.45 mill/uL (4.70-6.10)
[2023-07-31 04:40] LABS: Anion Gap 14 mmol/L (10-20); BUN (Urea Nitrogen) 56 mg/dL (8.4-25.7); Calc. Creatinine Clearance 66 mL/min (70-130); Calcium 9.3 mg/dL (7.8-10.44); Carbon Dioxide 29 mmol/L (23-31); Chloride 101 mmol/L (98-107); Estimated GFR 36; Glucose 111 mg/dL (80-115); Potassium 4.2 mmol/L (3.5-5.1); Sodium 140 mmol/L (136-145)
[2023-07-31] MEDS: Enoxaparin 40 MG (0.4 mL) SYRINGE SC SCH ×2 (10:18→21:48)
[2023-07-31] MEDS ORDERED: Insulin Glargine 30 UNITS/0.3 ML VIAL SC SCH (11:00)
[2023-07-31] MEDS ORDERED: Magnesium Citrate 300 ML BOT PO SCH (11:00)
[2023-07-31] MEDS ORDERED: Carvedilol 6.25 MG TAB PO SCH (11:00)
[2023-07-31] MEDS: Senokot S 8.6-50 MG TAB PO SCH ×2 (13:07→21:47)
[2023-07-31] MEDS: Milk Of Magnesia 30 ML UDCUP PO SCH (13:07)
[2023-07-31] MEDS: Carvedilol 6.25 MG TAB PO SCH (21:52)
[2023-08-01 05:11] LABS: #Basophils 0.08 10x3/uL (0.0-0.2); %Basophils 0.7 % (0.0-1.0); %Eosinophils 2.9 % (0.0-10.0); %Lymphocytes 15.1 % (21.0-51.0); %Monocytes 15.9 % (0.0-10.0); Hematocrit 39.5 % (42.0-52.0); Hemoglobin 12.3 g/dL (14.0-18.0); Mean Corpuscular HGB CONC 31.1 g/dL (32.0-36.0); Mean Corpuscular Hemoglobin 29.1 pg (27.0-31.0); Mean Corpuscular Volume 93.4 fL (78.0-98.0); Mean Platelet Volume 11.8 fL (7.4-10.4); Platelet Count 231 10x3/uL (130-400); RBC Distribution Width 15.2 % (11.5-14.5); Red Blood Cell (RBC) Count 4.23 mill/uL (4.70-6.10)
[2023-08-01 05:31] LABS: Anion Gap 15 mmol/L (10-20); BUN (Urea Nitrogen) 54 mg/dL (8.4-25.7); Calc. Creatinine Clearance 80 mL/min (70-130); Calcium 9.5 mg/dL (7.8-10.44); Carbon Dioxide 30 mmol/L (23-31); Chloride 101 mmol/L (98-107); Estimated GFR 46; Glucose 101 mg/dL (80-115); Potassium 4.2 mmol/L (3.5-5.1); Sodium 142 mmol/L (136-145)
[2023-08-01] MEDS: Insulin Glargine 30 UNITS/0.3 ML VIAL SC SCH (08:17)
[2023-08-01] MEDS: Famotidine 20 MG TAB PO SCH (08:23)
[2023-08-01 11:34] VITALS: TEMP 97.8
[2023-08-01 15:17] VITALS: BP 148/76
[2023-08-01] MEDS ORDERED: Senokot S 8.6-50 MG TAB PO SCH (21:00)
== END 2023-08-01 18:02 | DRG 291 ==
LOC: 2NO 03:36 → IMCU/EMU 07-21 02:53 → 2NO 07-28 07:28
PROVIDERS: ADMIT Student in an Organized Health Care Education/Training Program; ATTEND Family Medicine
PROC: 30233J1 Transfusion of Nonautologous Serum Albumin into Peripheral Vein, Percutaneous Approach (ICD-10-PCS; principal; 2023-07-21)
PROC: 5A09357 Assistance with Respiratory Ventilation, Less than 24 Consecutive Hours, Continuous Positive Airway Pressure (ICD-10-PCS; 2023-07-21)
DX: I50.23 Acute on chronic systolic (congestive) heart failure (principal); J96.21 Acute and chronic respiratory failure with hypoxia; N17.0 Acute kidney failure with tubular necrosis; E66.2 Morbid (severe) obesity with alveolar hypoventilation; R18.8 Other ascites; Z68.41 Body mass index [BMI] 40.0-44.9, adult; E87.20 Acidosis, unspecified; E87.1 Hypo-osmolality and hyponatremia; E11.22 Type 2 diabetes mellitus with diabetic chronic kidney disease; D63.1 Anemia in chronic kidney disease; K59.00 Constipation, unspecified; N18.30 Chronic kidney disease, stage 3 unspecified; E87.5 Hyperkalemia; Z88.2 Allergy status to sulfonamides; Z88.1 Allergy status to other antibiotic agents; Z79.899 Other long term (current) drug therapy; Z89.512 Acquired absence of left leg below knee; Z89.511 Acquired absence of right leg below knee; Z95.810 Presence of automatic (implantable) cardiac defibrillator; Z95.1 Presence of aortocoronary bypass graft; Z79.4 Long term (current) use of insulin
CPT/HCPCS: 36415; 36416; 71045; 74018; 76705; 80048; 80053; 82805; 83735; 83880; 84100; 85025; 85027; 94660; J1650; J1815; J1885; J1940; P9047